=== PATIENT | male | born 1990 | race Caucasian/White ===

== ENCOUNTER 2024-07-09 00:57 | Emergency (ER) | payer OTHER, SELFPAY ==
--- NOTE | 2024-07-09 01:06 | ED_ITS ---
HPI - General Adult General Chief complaint: Animal Bite Stated complaint: Cat bite R index finger Time Seen by Provider: 07/09/24 01:01 History of Present Illness HPI narrative: Pt states he was getting ready for bed, had right index finger covered with a bandaid from a previous injury and his cat bit his right index finger. Puncture through top of nail bed. Pt. states his cat is an indoor only cat. States his finger is throbbing, pain 5/10 34-year-old man presenting to the emergency department with concern of cat bite sustained to his right index finger tonight. Had had a prior cut on this finger and had a Band-Aid on. CT was nibbling on his fingers they were getting ready for bed. Apparently then he felt a crunch as her molar went through his nail. He then noted blood their confirming his concerns. Understanding that cat bites tend to get infected Keyshawn presented to the emergency department for further evaluation and antibiotic. Does note that is due for a tetanus update. Throbbing pain but admittedly this is intermittent. Related Data Previous Rx's ?Medication ?Instructions ?Recorded amoxicillin 875 mg-potassium 1 tab PO BID 7 days #14 tabs 07/09/24 clavulanate 125 mg tablet Allergies Allergy/AdvReac Type Severity Reaction Status Date / Time No Known Drug Allergies Allergy Verified 07/09/24 01:11 Review of Systems Status of ROS: Reports: 6 or more systems reviewed and unremarkable except as noted in History and below [facility] Social History Smoking Status: Never smoker Do you use any of these nicotine containing products: Vaping Products Second hand tobacco smoke exposure: No How often do you have a drink containing alcohol: monthly or less How many standard drinks containing alcohol do you have on a typical day: 1 or 2 How often do you have six or more drinks on one occasion: Never AUDIT-C Alcohol total score: 1 Non-prescribed substance use: denies use service: No Exam Narrative: Exam Narrative: Pleasant. NAD. Breathing easily. Moving all extremities without difficulty. Skin is warm and dry. Various scrapes consistent with cat claws perhaps. Right index finger in question does show a mm size puncture wound midline a nail proximal aspect. Small spot of blood there. Linear healing scrape/scratch on the radial side of the distal phalanx. No inflammatory changes in the area. Const: Vital Signs, click to edit/add: Vital Signs - 24 hr 07/09/24 01:08 Temperature 98.2 F Pulse Rate [Pulse Oximeter] 89 Respiratory Rate 18 Blood Pressure [Le ft Upper Arm] 131/88 Pulse Oximetry 97 Oxygen Delivery Me thod Room Air Documenting provider has reviewed patient's vital signs: yes Course Vital Signs Vital signs: Initial Vital Signs Temperature 98.2 F 07/09/24 01:08 Temperature Source Temporal Artery Scan 07/09/24 01:08 Pulse Rate 89 07/09/24 01:08 Pulse Rhythm Regular 07/09/24 01:08 Respiratory Rate 18 07/09/24 01:08 Blood Pressure 131/88 07/09/24 01:08 Blood Pressure Mean 102 07/09/24 01:08 Blood Pressure Position Sitting 07/09/24 01:08 Pulse Oximetry 97 07/09/24 01:08 Oxygen Delivery Method Room Air 07/09/24 01:08 Vital Signs Temperature 98.2 F 07/09/24 01:08 Pulse Rate 89 07/09/24 01:08 Respiratory Rate 18 07/09/24 01:08 Blood Pressure 131/88 07/09/24 01:08 Pulse Oximetry 97 07/09/24 01:08 Oxygen Delivery Method Room Air 07/09/24 01:08 Temperature 98.2 F 07/09/24 01:08 Pulse Rate 89 07/09/24 01:08 Respiratory Rate 18 07/09/24 01:08 Blood Pressure 131/88 07/09/24 01:08 Pulse Oximetry 97 07/09/24 01:08 Oxygen Delivery Method Room Air 07/09/24 01:08 Medications Administered Medications: Discontinued Medications Generic Name Dose Route Start Last Admin Trade Name Freq PRN Reason Stop Dose Admin Diphtheria/Tetanus/Acell Pertussis 0.5 ml 07/09/24 01:28 07/09/24 01:54 Tetanus/Diphth/Pertussis 0.5 Ml Syringe IM 07/09/24 01:29 0.5 ml .ONCE ONE Administration Ibuprofen 600 mg 07/09/24 01:24 07/09/24 01:55 Ibuprofen 200 Mg Tablet PO 07/09/24 01:25 600 mg ONCE ONE Administration Medical Decision Making MDM Narrative Medical decision making narrative: Place to soak in antibacterial solution. Did give some ibuprofen. I did discuss a digital block with initially described pain but he would prefer not to do that. Updating tetanus with Adacel. Would monitor closely for infection. Quite clean this wound otherwise but does not appear to be close to tendon or joint. Did prescribe Augmentin. He did not feel he needed it tonight. Sent to pharmacy. Think it would be okay to monitor this finger closely verses initiate antibiotic is prophylaxis. See patient discharge plan for further discussion Discharge Plan Discharge Clinical Impression: Cat bite of index finger Patient Disposition: Home, Self-Care Condition: Stable Instructions: Animal Bite (ED) Additional Instructions: Ibuprofen, acetaminophen, elevation for comfort. Watch for spreading redness after 2 days or redness extending beyond the 1st knuckle as indication to initiate antibiotics. Cover with antibiotic ointment and Band-Aid over the next 5 days Would soak in warm soapy or Epsom salt water a couple of times daily over the next 2-3 days. Activity Level: No Restrictions Discharge Diet: Regular Prescriptions: New amoxicillin-pot clavulanate 875-125 mg tablet 1 tab PO BID 7 Days Qty: 14 0RF Follow Up/Referrals: Provider,Not a Local [Primary Care Provider] - Stand Alone Forms: [facility] Info Instructions
[2024-07-09 01:08] VITALS: BP 131/88; PULSE 89; RESP 18; TEMP 36.8; O2SAT 97; BMI 34.0
--- OUTSIDE RECORDS SUMMARY | 2024-07-09 01:30 | XMS_ITS | Clinical Summary ---
[facility] Organization [facility] Address [address] [address] Care Team Providers Care Terminologist Name Role Phone Watson Mo PA-C Primary Care Provider [phone] Source Comments You are receiving this document as you are listed as the primary care provider,follow-up provider, or the patient has been referred to you for consultation.This is in compliance with the Medicare andMedicaid EHR Incentive Program,which states Providers who transition their patient to another setting of careor provider of care or refers their patient to another provider of care shouldprovide summary care record for each transition of care or referral. [facility] Allergies No known active allergies Medications Medication Sig Dispensed Refills Start Date End Date Status ALBUterol sulfate HFA 108 (90 Base) MCG/ACT inhaler Inhale 1-2 Puffs every 4 hours as needed for Wheezing. 1 Each 03/10/2023 06/26/2024 Discontinued Active Problems Problem Noted Date Diagnosed Date Lesion of ulnar nerve, right upper limb Encounters Date Type Department Care Team Description 06/26/2024 3:40 PM CDT Lab Visit [facility] [address] [place] [phone] Routine screening for STI (sexually transmitted infection) 06/26/2024 3:30 PM CDT Office Visit [facility] [address] [place] [address] [phone] Watson Mo PA-C Annual physical exam (Primary Dx); Screening for diabetes mellitus; Screening for hyperlipidemia; Routine screening for STI (sexually transmitted infection) from Last 3 Months Immunizations Name Administration Dates Next Due MMR 06/01/1998 TB Skin Test (PPD) 02/27/2019 Td 11/25/2002 Family History Medical History Relation Name Comments Heart Disease Maternal Grandfather Dmitry Histor y of heart disease on mothers side Relation Name Status Comments Maternal Grandfather Dmitry Social History Tobacco Use Types Packs/Day Years Used Date Smoking Tobacco: Former Cigarettes 1 10 Q uit: 06/06/2021 Tobacco Cessation:Counseling Given: Not Answered Alcohol Use Standard Drinks/Week Comments Not Currently 0 (1 standard drink = 0.6 oz pure alcohol) Extremely infrequent use, maybe once or twice a year at most PHQ-2 Answer Date Recorded PHQ-2 Score 0 06/26/2024 Hunger Vital Sign Answer Date Recorded Within the past 12 months, y ou worried that your food would run out before you got the money to buy more. Never true 06/26/20 24 Within the past 12 months, t he food you bought just didn't last and you didn't have money to get more. Never true 06/26/2024 PRAPARE - Transportation Answer Date Re corded In the past 12 months, has l ack of transportation kept you from medical appointments or from getting medications? No 06/07 In the past 12 months, has l ack of transportation kept you from meetings, work, or from getting things needed for daily living? No 06/26/2024 Housing Stability Vital Sign Answer Abisai e Recorded In the last 12 months, was t here a time when you were not able to pay the mortgage or rent on time? No 06/26/2024 In the past 12 months, how m any times have you moved where you were living? 0 06/26/2024 At any time in the past 12 m [facility], were you homeless or living in a halfway (including now)? No 06/26/2024 Sex and Gender Information Value Date Recorded Sex Assigned at Not on file Gender Identity Not on file Sexual Orientation Not on file Last Filed Vital Signs Vital Sign Reading Time Taken Comments Blood Pressure 121/81 06/26/2024 3:07 PM CDT Pulse 68 06/26/2024 3:07 PM CDT Temperature 37.1 ??C (98.8 ??F) 03/10/2023 8:06 AM CD T Respiratory Rate 18 03/10/2023 8:06 AM CDT Oxygen Saturation 98% 03/10/2023 8:06 AM CDT Inhaled Oxygen Concentration - - Weight 105.7 kg (233 lb) 06/26/2024 3:07 PM CDT Height 175.3 cm (5' 9) 06/26/2024 3:07 PM CDT Body Mass Index 34.41 06/26/2024 3:07 PM CDT Plan of Treatment Health Maintenance Due Date Last Done Comments MTM Covered 1991 DTaP/Tdap/Td (2 - Tdap) 11/26/2002 11/25/2002 HepB (1) 2010 COVID-19 Vaccine (3 - 2022-2 4 season) 2023 09/23/2021, 01/25/2021 Influenza (#1) 2024 Adult Preventive Visit 06/26/2026 06/26/2024 Zoster/Shingles (1 of 2) 2041 HIV Screening (Preventive Services) Completed 06/26/2024 Hep C Screening (Preventive Services) Completed 06/26/2024 HPV Vaccine Aged Out No longer eligi ble based on patient's age to complete this topic HepA Aged Out No longer eligi ble based on patient's age to complete this topic Hib Aged Out No longer eligi ble based on patient's age to complete this topic IPV (Polio) Aged Out No longer eligi ble based on patient's age to complete this topic MCV4 Aged Out No longer eligi ble based on patient's age to complete this topic Pneumococcal Aged Out No longer eligi ble based on patient's age to complete this topic Procedures Procedure Name Priority Date/Time Associated Diagnosis Comments SYPHILIS PANEL (WITH REFLEX) Routine 06/26/2024 3:45 PM CDT Routine screening for STI (sexually transmitted infection) CHLAMYDIA & GC, URINE (14 YEARS AND OLDER) Routine 06/26/2024 3:45 PM CDT Routine screening for STI (sexually transmitted infection) HEPATITIS C ANTIBODY, WITH REFLEX Routine 06/26/2024 3:45 PM CDT Routine screening for STI (sexually transmitted infection) HIV 1/2 AG/AB 4TH GEN Routine 06/26/2024 3:45 PM CDT Routine screening for STI (sexually transmitted infection) SYPHILIS PANEL (WITH REFLEX) Routine 06/26/2024 3:45 PM CDT Routine screening for STI (sexually transmitted infection) from Last 3 Months Results * Syphilis Panel, with Reflex (06/26/2024 3:45 PM CDT) Treponema Screen Interpretation Non Reactive Non Reactive 06/26/2024 8:16 PM CDT [facility] Syphilis Panel Comment Negative - No serological evidence of syphilis. 06/26/2024 8:16 PM CDT [facility] Blood Venipuncture / Unknown 06/26/2024 3:45 PM CDT 06/26/2024 3:45 PM CDT Watson Mo PA-C LAB_1 Performing Organization Address City/[facility]/ZIP Co de Phone Number [facility] [address] [place] [address] * HIV 1/2 Ag/Ab 4th Generation (06/26/2024 3:45 PM CDT) Pathologist [facility] HIV 1/2 Antigen/Antib karime (4th generation) Negative (Non Reactive) Negative (Non Reactive) 06/26/2024 8:16 PM CDT [facility] Comment:HIV-1 p24 Antigen an d HIV-1/HIV-2 Antibody not detected Blood Venipuncture / Unknown 06/26/2024 3:45 PM CDT 06/26/2024 3:45 PM CDT Watson Mo PA-C LAB_1 [facility] [address] [place] [address] * Chlamydia & GC, Urine (14 Years and Older) (06/26/2024 3:45 PM CDT) Pathologist [facility] Chlamydia Trachomatis STD Not Detected Not Detected 06/27/2024 12:25 PM CDT [facility] N. gonorrhoeae STD Not Detected Not Detected 06/27/2024 12:25 PM CDT [facility] Urine STD Non-blood Collection / Unknown 06/26/2024 3:45 PM CDT 06/26/2024 3:50 PM CDT Narrative [facility] - 06/27/2024 12:25 PM CDT Test performed by [employer] Mediated Amplification (TMA). Watson Mo PA-C LAB_1 [facility] [address] [address] * Hepatitis C Antibody, with Reflex (06/26/2024 3:45 PM CDT) Hepatitis C Antibody Negative (Non Reactive) Negative (Non Reactive) 06/26/2024 8:16 PM CDT [facility] Comment:Antibodies to HCV no t detected. Does not exclude the possiblity of exposure to HCV. Blood Venipuncture / Unknown 06/26/2024 3:45 PM CDT 06/26/2024 3:45 PM CDT Watson Mo PA-C LAB_1 Performing Organization Address City/[facility]/ZIP Co de Phone Number [facility] [address] [place] [address], [facility] from Last 3 Months Care Teams Terminologist Relationship Specialty Start Date End Date Watson Mo PA-C [address] [place] [address] [place] [address] PCP - General Physician [employer] 06/26/24
--- OUTSIDE RECORDS SUMMARY | 2024-07-09 01:30 | XMS_ITS | Encounter Summary ---
Author Organization [facility] Address [address] [place] [address] Care Team Providers Care Cylinder Worker Name Role Phone Watson Mo PA-C Primary Care Provider [phone] Reason for Visit * Reason Comments Annual Exam Encounter Details Date Type Department Care Team (Late st Contact Info) Description 06/26/2024 3:30 PM CDT Office Visit [facility] [address] [facility] [place] [phone] Watson Mo PA-C [address] [facility] [place] [facility] [place] [id number] Annual physical exam (Primary Dx); Screening for diabetes mellitus; Screening for hyperlipidemia; Routine screening for STI (sexually transmitted infection) Social History Tobacco Use Types Packs/Day Years [...] any time in the past [address] [facility], were you homeless or living in a intermediate (including now)? No 06/26/2024 Sex and Gender Information Value Date Recorded Sex Assigned at Not on file Gender Identity Not on file Sexual Orientation Not on file documented as of this encounter Last Filed Vital Signs Vital Sign Reading Time Taken Comments Blood Pressure 121/81 06/26/2024 3:07 PM CDT Pulse 68 06/26/2024 3:07 PM CDT Temperature - - Respiratory Rate - - Oxygen Saturation - - Inhaled Oxygen Concentration - - Weight 105.7 kg (233 lb) 06/26/2024 3:07 PM CDT Height 175.3 cm (5' 9) 06/26/2024 3:07 PM CDT Body Mass Index 34.41 06/26/2024 3:07 PM CDT documented in this encounter Progress Notes * Watson Mo PA-C - 06/26/2024 3:30 PM CDT Images from the original note were not included. Male Preventive Health Visit SUBJECTIVE Identifying data: Keyshawn Mckeon is a 33 y.o. male Date of Visit: 06/26/2024 SUBJECTIVE: This 33 y.o. male presents for a routine preventive physical exam. He has a past medical history ofacid reflux. He primarily manages this with dietary and lifestyle modifications. Will occasionally use Tums and Prilosec. No other reported chronic medical conditions. He is currently applying for the [facility] Law enforcement program. Requires to have a physical and paperwork completed. He also would like to have STI panel done as he has not had 1 for several years. No concerns or symptoms reported. There is no problem list on file for this patient. Past Medical History: Diagnosis Date Gastroesophageal reflux disease Likely diet related- only happens after certain food/drinks but not frequently. Past Surgical History: Procedure Laterality Date WISDOM TEETH EXTRACTION Bilateral Family History Problem Relation Name Age of [place] Heart Disease Maternal Grandfather Andres History of heart disease on mothers side Social History Socioeconomic History Marital status: Single Spouse name: Not on file Number of children: Not on file Years of education: Not on file Highest education level: Not on file Occupational History Not on file Tobacco Use Smoking status: Former Current packs/day: 0.00 Average packs/day: 1 pack/day for 10.0 years (10.0 ttl pk-yrs) Types: Cigarettes Quit date: 06/06/2021 Years since quittin.0 Smokeless tobacco: Not on file Vaping Use Vaping status: Every Day Substance and Sexual Activity Alcohol use: Not Currently Comment: Extremely infrequent use, maybe once or twice a year at most Drug use: Never Sexual activity: Yes Partners: Female control/protection: None Other Topics Concern Bike Helmet Not Asked City Water Not Asked Exercise Not Asked Guns in home Not Asked Seat Belt Not Asked Special Diet Not Asked Weight Concern Not Asked Social History Narrative Not on file Social Determinants of Health Financial Resource Strain: Not on file Food Insecurity: No Food Insecurity (06/26/2024) Hunger Vital Sign Worried About Running Out of Food in the Last Year: Never true Ran Out of Food in the Last Year: Never true Transportation Needs: No Transportation Needs (06/26/2024) PRAPARE - Transportation Lack of Transportation (Medical): No Lack of Transportation (Non-Medical): No Physical Activity: Not on file Stress: Not on file Social Connections: Not on file Intimate Partner Violence: Not on file Housing Stability: Low Risk (06/26/2024) Housing Stability Vital Sign Unable to Pay for Housing in the Last Year: No Number of Times Moved in the Last Year: 0 Homeless in the Last Year: No Current Outpatient Medications Medication Sig Dispense Refill ALBUterol sulfate HFA 108 (90 Base) MCG/ACT inhaler Inhale 1-2 Puffs every 4 hours as needed for Wheezing. 1 Each 0 No current facility-administered medications for this visit. No Known Allergies Health Maintenance Immunization History Administered Date(s) Administered MMR 06/01/1998 TB Skin Test (PPD) 02/27/2019 Td 11/25/2002 Preventive Health Assessment Present exercise habits: Active Mood: No concerns Sleep: No concerns Immunizations: Up to date. Will check to ensure when his last tetanus booster was. Colonoscopy: Due at 46 Review of Systems: Review of Systems completed and is negative except as stated above in HPI PHQ9: No data to display Index Date: No date on file. OBJECTIVE: Filed Vitals: 06/26/24 1507 BP: 121/81 Pulse: 68 Weight: 233 lb (105.7 kg) Height: 5' 9 (1.753 m) Estimated body mass index is 34.41 kg/m?? as calculated from the following: Height as of this encounter: 5' 9 (1.753 m). Weight as of this encounter: 233 lb (105.7 kg). General Appearance: Alert, cooperative, no acute distress Head: Normocephalic, no obvious abnormality Eyes: PERRL, EOMI, conjunctiva and corneas clear without injection Ears: TM pearly hays bilaterally without erythema or fluid. Normal auditory canals bilaterally Nose: Nares symmetrical, septum midline, mucosa pink. Throat: oropharynx non-erythematous; lips, tongue, and mucosa are moist and pink. Neck: No cervical adenopathy; thyroid: no enlargement, symmetric,no tenderness/mass/nodules Lungs: Clear to auscultation bilaterally, respirations unlabored Heart: regular rate & rhythm, no murmurs Abdomen: Soft, non-tender, non-distended, bowel sounds active, no masses or organomegaly Skin/Hair/Nails: Skin warm, dry, and intact, no rashes or lesions seen. Neurologic: Alert and oriented x3, no gross cranial nerve deficits, normal strength and tone, gait steady Psychiatric: Alert & oriented with normal affect and insight. ASSESSMENT / PLAN: 1. Annual physical exam 2. Screening for diabetes mellitus - Glucose; Future 3. Screening for hyperlipidemia - Lipid Panel and Direct LDL(If Needed); Future 4. Routine screening for STI (sexually transmitted infection) - HIV 1/2 Ag/Ab 4th Generation; Future - Hepatitis C Antibody, with Reflex; Future - Chlamydia & GC, Urine (14 Years and Older); Future - Syphilis Panel, with Reflex; Future Normal exam today. He will return to have fasting labs drawn, I will contact him regarding these results. STI panel ordered. Blood pressure within normal limits. He believes that he had a tetanus booster while in the , he will ensure that this is completed. Physical paperwork completed today. He has no other concerns or questions. He will follow up in one year for his preventative visit. Watson Mo PA-C documented in this encounter Plan of Treatment Scheduled Orders Name Type Priority Associated Diagnoses Orde r Schedule Glucose Lab Routine Screening for diabetes mellitus Expected: 06/26/2024, Expires: 12/27/2024 Lipid Panel and Direct LDL(If Needed) Lab Routine Screening for hyperlipidemia Expected: 06/26/2024, Expires: 12/27/2024 documented as of this encounter Results * Chlamydia & GC, Urine (14 Years and Older) (06/26/2024 3:45 PM CDT) Pathologist [facility] Chlamydia Trachomatis STD Not Detected Not Detected 06/27/2024 12:25 PM CDT [facility] N. gonorrhoeae STD Not Detected Not Detected 06/27/2024 12:25 PM CDT [facility] Urine STD Non-blood Collection / Unknown 06/26/2024 3:45 PM CDT 06/26/2024 3:50 PM CDT Narrative [facility] - 06/27/2024 12:25 PM CDT Test performed by [employer] Professional Mediated Amplification (TMA). Watson Mo PA-C LAB_1 [facility] [address] * Hepatitis C Antibody, with Reflex (06/26/2024 3:45 PM CDT) Pathologist [facility] Hepatitis C Antibody Negative (Non Reactive) Negative (Non Reactive) 06/26/2024 8:16 PM CDT [facility] Comment:Antibodies to HCV no t detected. Does not exclude the possiblity of exposure to HCV. Blood Venipuncture / Unknown 06/26/2024 3:45 PM CDT 06/26/2024 3:45 PM CDT Watson Mo PA-C LAB_1 Performing Organization Address City/[facility]/ZIP Co de Phone Number [facility] [address] * HIV 1/2 Ag/Ab 4th Generation (06/26/2024 3:45 PM CDT) HIV 1/2 Antigen/Antib karime (4th generation) Negative (Non Reactive) Negative (Non Reactive) 06/26/2024 8:16 PM CDT [facility] Comment:HIV-1 p24 Antigen an d HIV-1/HIV-2 Antibody not detected Blood Venipuncture / Unknown 06/26/2024 3:45 PM CDT 06/26/2024 3:45 PM CDT Watson Mo PA-C LAB_1 Performing Organization Address [facility] Co de Phone Number [facility] [address] documented in this encounter Visit Diagnoses Diagnosis Annual physical exam- Primary Routine general medical examination at a health care facility Screening for diabetes mellitus Screening for hyperlipidemia Screening for lipoid disorders Routine screening for STI (sexually transmitted infection) Screening examination for venereal disease documented in this encounter Care Teams Cylinder Worker Relationship Specialty Start Date End Date Watson Mo PA-C [address] [place] [address] PCP - General Physician Business Support Manager 06/26/24 documented as of this encounter
--- OUTSIDE RECORDS SUMMARY | 2024-07-09 01:30 | XMS_ITS | Encounter Summary ---
Author Organization [facility] Address [address] [place] [address] Care Team Providers Care Budget Counselor Name Role Phone Watson Mo PA-C Primary Care Provider + [phone] Encounter Details Date Type Department Care Team (Late st Contact Info) Description 06/26/2024 3:40 PM CDT Lab Visit [facility] [address] [place] [address] Routine screening for STI (sexually transmitted infection) Social History Tobacco Use Types Packs/Day Years Used Date Smoking Tobacco: Former Cigarettes 1 10 Q uit: 06/06/2021 Alcohol Use Standard Drinks/Week Comments Not Currently [...] any time in the past 12 m [facility], were you homeless or living in a care home (including now)? No 06/26/2024 Sex and Gender Information Value Date Recorded Sex Assigned at Not on file Gender Identity Not on file Sexual Orientation Not on file documented as of this encounter Plan of Treatment Not on file documented as of this encounter Procedures Procedure Name Priority Date/Time Associated Diagnosis [...] Routine screening for STI (sexually transmitted infection) documented in this encounter Results * Syphilis Panel, with Reflex (06/26/2024 3:45 PM CDT) Treponema Screen Interpretation Non Reactive Non Reactive 06/26/2024 8:16 PM CDT [facility] Syphilis Panel Comment Negative - No serological evidence of syphilis. 06/26/2024 8:16 PM CDT [facility] Blood Venipuncture / Unknown 06/26/2024 3:45 PM CDT 06/26/2024 3:45 PM CDT Watson Mo PA-C LAB_1 [facility] [address] * Chlamydia & GC, Urine (14 Years and Older) (06/26/2024 3:45 PM CDT) Pathologist [facility] Chlamydia Trachomatis STD Not Detected Not Detected 06/27/2024 12:25 PM CDT [facility] N. gonorrhoeae STD Not Detected Not Detected 06/27/2024 12:25 PM CDT [facility] Urine STD Non-blood Collection / Unknown 06/26/2024 3:45 PM CDT 06/26/2024 3:50 PM CDT Narrative [facility] - 06/27/2024 12:25 PM CDT Test performed by Motor Vehicle Inspector Mediated Amplification (TMA). Watson Mo PA-C LAB_1 Performing Organization Address [facility] Co de Phone Number [facility] [address] * Hepatitis C Antibody, with Reflex (06/26/2024 3:45 PM CDT) Pathologist [facility] Hepatitis C Antibody Negative (Non Reactive) Negative (Non Reactive) 06/26/2024 8:16 PM CDT [facility] Comment:Antibodies to HCV no t detected. Does not exclude the possiblity of exposure to HCV. Blood Venipuncture / Unknown 06/26/2024 3:45 PM CDT 06/26/2024 3:45 PM CDT Watson Mo PA-C LAB_1 Performing Organization Address City/[facility]/ZIP Co de Phone Number [facility] [address] * HIV 1/2 Ag/Ab 4th Generation (06/26/2024 3:45 PM CDT) Pathologist [facility] HIV 1/2 Antigen/Antib karime (4th generation) Negative (Non Reactive) Negative (Non Reactive) 06/26/2024 8:16 PM CDT [facility] Comment:HIV-1 p24 Antigen an d HIV-1/HIV-2 Antibody not detected Blood Venipuncture / Unknown 06/26/2024 3:45 PM CDT 06/26/2024 3:45 PM CDT Watson Mo PA-C LAB_1 [facility] [address] [place] [address], [facility] documented in this encounter Visit Diagnoses Diagnosis Routine screening for STI (sexually transmitted infection) Screening examination for venereal disease documented in this encounter Care Teams Budget Counselor Relationship Specialty Start Date End Date Watson Mo PA-C [address] [place] [address] [place] [address] PCP - General Physician Parts Professional 06/26/24 documented as of this encounter
--- OUTSIDE RECORDS SUMMARY | 2024-07-09 01:30 | XMS_ITS | Clinical Summary ---
Author Organization [facility] Address [place], [place] [address] Care Team Providers Care Python Developer Name Role Phone Pcp, No Primary Care Provider Unavailabl e Allergies No known active allergies Social History Tobacco Use Types Packs/Day Years Used Date Smoking Tobacco: Never Assessed Sex and Gender Information Value Date Recorded Sex Assigned at Not on file Gender Identity Not on file Sexual Orientation Not on file Last Filed Vital Signs Vital Sign Reading Time Taken Comments Blood Pressure 133/74 08/01/2023 8:08 AM CDT Pulse 82 08/01/2023 8:08 AM CDT Temperature 37.1 ??C (98.7 ??F) 08/01/2023 8:08 AM CD T Respiratory Rate 16 08/01/2023 8:08 AM CDT Oxygen Saturation 96% 08/01/2023 8:08 AM CDT Inhaled Oxygen Concentration - - Weight 104.8 kg (231 lb) 08/01/2023 8:08 AM CDT Height - - Body Mass Index - - Plan of Treatment Not on file Care Teams Python Developer Relationship Specialty Start Date End Date Pcp, No . PCP - General 03/31/17
[2024-07-09] MEDS: TETANUS/DIPHTH/PERTUSSIS 0.5 ML SYRINGE IM (01:54)
[2024-07-09] MEDS: IBUPROFEN 200 MG TABLET 600 MG PO (01:55)
== END 2024-07-09 01:55 | disposition home or self-care (01) ==
PROVIDERS: Emergency Provider Family Medicine
DX: S61.250A Open bite of right index finger without damage to nail, initial encounter (principal); W55.01XA Bitten by cat, initial encounter; Z23 Encounter for immunization
CPT/HCPCS: 90471; 90715; 99283; 99284; A9270

== ENCOUNTER 2025-03-10 02:26 | Emergency (ER) | payer OTHER, SELFPAY ==
--- OUTSIDE RECORDS SUMMARY | 2025-03-10 02:28 | XMS_ITS | Clinical Summary ---
Author Organization [facility] Address [address] [place] [address] Care Team Providers Care Body Presser Name Role Phone Pcp, No Primary Care Provider Unavailabl e Allergies No known active allergies Social History Tobacco Use Types Packs/Day Years Used Date Smoking Tobacco: Never Assessed Sex and Gender Information Value Date Recorded Sex Assigned at Not on file Legal Sex Male 11:00 AM CDT Gender Identity Not on file Sexual Orientation Not on file Last Filed Vital Signs Vital Sign Reading Time Taken Comments Blood Pressure 133/74 08/01/2023 8:08 AM CDT Pulse 82 08/01/2023 8:08 AM CDT Temperature 37.1 C (98.7 F) 08/01/2023 8:08 AM CDT Respiratory Rate 16 08/01/2023 8:08 AM CDT Oxygen Saturation 96% 08/01/2023 8:08 AM CDT Inhaled Oxygen Concentration - - Weight 104.8 kg (231 lb) 08/01/2023 8:08 AM CDT Height - - Body Mass Index - - Plan of Treatment Not on [place] [id number] [place] [id number] [phone] (Work) [address] [place] [address] Care Teams Body Presser Relationship Specialty Start Date End Date Pcp, No . PCP - General 03/31/17
--- OUTSIDE RECORDS SUMMARY | 2025-03-10 02:29 | XMS_ITS | Clinical Summary ---
Author Organization [facility] Address [address] [place] [address] Care Team Providers Care Low Raw Sugar Cutter Name Role Phone Watson Mo PA-C Primary Care Provider + [phone] Source Comments You are receiving this document as you are listed as the primary care provider,follow-up provider, or the patient has been referred to you for consultation.This is in compliance with the Medicare and[facility] Foundation[facility] EHR Incentive Program,which states Providers who transition their patient to another setting of careor provider of care or refers their patient to another provider of care shouldprovide summary care record for each transition of care or referral. [facility] Allergies No known active allergies Medications No known medications Active Problems Problem Noted Date Diagnosed Date Lesion of ulnar nerve, right upper limb Immunizations Immunization Administration Dates Next Due MMR 06/01/1998 TB Skin Test (PPD) 02/27/2019 Td 11/25/2002 Family History Medical History Relation Name Comments Heart Disease Maternal Grandfather Andres Histor y of heart disease on mothers side Relation Name Status Comments Maternal Grandfather Andres Social History Tobacco Use Types Packs/Day Years [...] any time in the past 12 m [facility], were you homeless or living in a intermediate (including now)? No 06/26/2024 Sex and Gender Information Value Date Recorded Sex Assigned at Not on file Legal Sex Male 4:50 AM CDT Gender Identity Not on file Sexual Orientation Not on file Last Filed Vital Signs Vital Sign Reading Time Taken Comments Blood Pressure 121/81 06/26/2024 3:07 PM CDT Pulse 68 06/26/2024 3:07 PM CDT Temperature 37.1 C (98.8 F) 03/10/2023 8:06 AM CDT Respiratory Rate 18 03/10/2023 8:06 AM CDT Oxygen Saturation 98% 03/10/2023 8:06 AM CDT Inhaled Oxygen Concentration - - Weight 105.7 kg (233 lb) 06/26/2024 3:07 PM CDT Height 175.3 cm (5' 9) 06/26/2024 3:07 PM CDT Body Mass Index 34.41 06/26/2024 3:07 PM CDT Plan of Treatment Health Maintenance Due Date Last Done Comments HepB Vaccine (1) 2010 COVID-19 Vaccine ( - 2023-2 5 season) 2024 09/23/2021, 01/25/2021 Influenza Vaccine (Season Ended) 2025 Adult Preventive Visit 06/26/2026 06/26/2024 DTaP/Tdap/Td Vaccine (3 - Tdap) 07/09/2034 07/09/2024, 11/25/2002 Zoster/Shingles Vaccine (1 o f 2) 2041 HIV Screening (Preventive Services) Completed 06/26/2024 Hep C Screening (Preventive Services) Completed 06/26/2024 HPV Vaccine Aged Out No longer eligi ble based on patient's age to complete this topic HepA Vaccine Aged Out No longer eligi ble based on patient's age to complete this topic Hib Vaccine Aged Out No longer eligi ble based on patient's age to complete this topic IPV (Polio) Vaccine Aged Out No longe r eligible based on patient's age to complete this topic MCV4 Vaccine Aged Out No longer eligi ble based on patient's age to complete this topic Meningococcal B Vaccine Aged Out No l onger eligible based on patient's age to complete this topic Pneumococcal Vaccine Aged Out No long er eligible based on patient's age to complete this topic Procedures Procedure Name Priority Date/Time Associated Diagnosis Comments HIV 1/2 AG/AB 4TH GEN Routine 06/26/2024 3:45 PM CDT Routine screening for STI (sexually transmitted infection) HEPATITIS C ANTIBODY, WITH REFLEX Routine 06/26/2024 3:45 PM CDT Routine screening for STI (sexually transmitted infection) from Last 3 Months or Most Recently Relevant to Health Maintenance Results * HIV 1/2 Ag/Ab 4th Generation (06/26/2024 3:45 PM CDT) HIV 1/2 Antigen/Antib karime (4th generation) Negative (Non Reactive) Negative (Non Reactive) 06/26/2024 8:16 PM CDT [facility] Comment:HIV-1 p24 Antigen an d HIV-1/HIV-2 Antibody not detected Blood Venipuncture / Unknown 06/26/2024 3:45 PM CDT 06/26/2024 3:45 PM CDT us Watson Mo PA-C LAB_1 Final Result [facility] [address] * Hepatitis C Antibody, with Reflex (06/26/2024 3:45 PM CDT) Hepatitis C Antibody Negative (Non Reactive) Negative (Non Reactive) 06/26/2024 8:16 PM CDT [facility] Comment:Antibodies to HCV no t detected. Does not exclude the possiblity of exposure to HCV. Blood Venipuncture / Unknown 06/26/2024 3:45 PM CDT 06/26/2024 3:45 PM CDT us Watson Mo PA-C LAB_1 Final Result [facility] [address] [place] [address], [facility] from Last 3 Months or Most Recently Relevant to Health Maintenance Insurance SELF INSURED SELF INSURED Care Teams Low Raw Sugar Cutter Relationship Specialty Start Date End Date Watson Mo PA-C [address] [place] [address] PCP - General Physician Auto Camp Attendant 06/26/24
--- OUTSIDE RECORDS SUMMARY | 2025-03-10 02:29 | XMS_ITS | Clinical Summary ---
Author Organization [facility] Address [address] [place] [address] Care Team Providers Care Wild Life Photographer Name Role Phone Elsewhere, Pcp Primary Care Provider Unavailabl e Source Comments Patient records contain information from all sites at [facility]. For routine questions regarding patient records, call [phone] during business hours, M-F 8:00 AM - 5:00 PM Central Time. Record requests for emergency care only can be directed to [phone] at any time.[facility] Allergies No known active allergies Medications acetaminophen (TYLENOL) 500 mg tablet Take 1,000 mg by mouth every 6 (six) hours as needed for pain. Active Active Problems Problem Noted Date Diagnosed Date Obstructive Sleep Apnea Adult 01/26/2025 Lesion Nerve Ulnar Right 01/26/2025 Insomnia 01/26/2025 Gastroesophageal Reflux Disease 01/26/2025 Encounters Date Type Department Care Team Description 01/26/2025 10:10 AM CDT - 01/26/2025 11:36 AM CDT Emergency [facility] [address] [place] [address] Daysi Linder APRN, C.N.P., M.S.N. Infection Upper Respiratory (Primary Dx); Pharyngitis Acute Discharge Disposition: Home or Self Care from Last 3 Months Social History Tobacco Use Types Packs/Day Years Used Date Smoking Tobacco: Never Passive Smoke Exposure: Never Tobacco Cessation:Counseling Given: Not Answered Comments:Currently vapes 01/2025 Alcohol Use Standard Drinks/Week Comments Not Currently 0 (1 standard drink = 0.6 oz pur e alcohol) Dental Answer Date Recorded Dental: Regular Dentist Unknown 07/30/20 Sex and Gender Information Value Date Recorded Sex Assigned at Not on file Legal Sex Male 1:22 AM ETHOLOGIST Gender Identity Not on file Sexual Orientation Not on file Last Filed Vital Signs Vital Sign Reading Time Taken Comments Blood Pressure 139/82 01/26/2025 10:17 AM CDT Pulse 83 01/26/2025 10:17 AM CDT Temperature 36.6 C (97.9 F) 01/26/2025 10:17 AM CDT Respiratory Rate 18 01/26/2025 10:17 AM CDT Oxygen Saturation 97% 01/26/2025 10:17 AM CDT Inhaled Oxygen Concentration - - Weight 103 kg (226 lb) 01/26/2025 10:19 AM CDT Height 179.8 cm (5' 10.8) 07/30/2022 11:47 AM C DT Body Mass Index 31.7 07/30/2022 11:47 AM CDT Plan of Treatment Health Maintenance Due Date Last Done Comments HIV Screening 1991 Hepatitis C Screening 1991 Tobacco Cessation counseling 1991 Hepatitis B Vaccines (1 of 3 - 19+ 3-dose series) 2010 COVID-19 Vaccine (2023- season) 2024 10/07/2021, 02/25/2021, 01/28/2021, Additional history exists Influenza Vaccine (#1) 2024 , 10/02/2020, 10/01/2019, Additional history exists Depression Screening (Annual PHQ-2) 11/06/2024 DTaP,Tdap,and Td Vaccines (3 - Td or Tdap) 12/07/2026 12/07/2016, 01/22/2016 HPV Vaccines Aged Out No longer eligi ble based on patient's age to complete this topic IPV Vaccines Aged Out No longer eligi ble based on patient's age to complete this topic Pneumococcal vaccine (0-49 years) Aged Out No longer eligible based on patient's age to complete this topic Procedures Procedure Name Priority Date/Time Associated Diagnosis Comments GROUP A STREP PCR, THROAT STAT 01/26/2025 11:07 AM CDT Pharyngitis Acute from Last 3 Months Results * Group A Streptococcus PCR, Throat (01/26/2025 11:07 AM CDT) Strep Group A, PCR, POCT Negative Negative 01/26/2025 11:11 AM CDT [facility] Swab (Throat) 01/26/2025 11: 07 AM CDT 01/26/2025 11:09 AM CDT us Daysi Linder APRN, C.N.P., M.S.N. LAB MICROBIOLOGY - GENERAL ORDERABLES Final Result [facility] [address] [place] [address], [facility] NPRG [facility] [address] [place] [address] from Last 3 Months Insurance [employer] Care Teams Wild Life Photographer Relationship Specialty Start Date End Date Elsewhere, Pcp PCP - General Internal Medicine 01/26/25
--- OUTSIDE RECORDS SUMMARY | 2025-03-10 02:29 | XMS_ITS | Encounter Summary ---
Author Organization [facility] Address [address] [place] [address] Care Team Providers Care Net Web Developer Name Role Phone Elsewhere, Pcp Primary Care Provider Unavailabl e Reason for Visit * Reason Comments Cough Pt presents with kathie oing cough x4 days. Encounter Details Date Type Department Care Team (Late st Contact Info) Description 01/26/2025 10:10 AM CDT - 01/26/2025 11:36 AM CDT Emergency [facility] [address] [place] [address] Daysi Linder, ANNIE, C.N.P., M.S.N. 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 * Viral Respiratory Infection [id number] (Azerbaijani) documented in this encounter Medications at Time of Discharge acetaminophen (TYLENOL) 500 mg tablet Take 1,000 mg by mouth every 6 (six) hours as needed for pain. benzonatate (Tessalon) 200 mg capsule Take 1 capsule (200 mg total) by mouth 3 (three) times a day as needed for cough for up to 7 days. 21 capsule 01/26/2025 02/02/2025 documented as of this encounter Progress Notes * Daysi Linder, ANNIE, C.N.P., M.S.N. - 01/26/2025 11:16 AM CDT SUBJECTIVE CHIEF COMPLAINT/REASON FOR VISIT Cough (Pt presents with ongoing cough x4 days. ) HISTORY OF PRESENT ILLNESS Keyshawn Mckeon is a 34 y.o. male who presents for 4 day history of cough and sore throat. He states when he has a coughing spell he gets a headache and a little lightheadedness. He has no history of asthma or COPD. He does vape nicotine. 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 No known exposure to strep, influenza or COVID. He denies any chest pain or shortness for breath. No fevers at home. REVIEW OF SYSTEMS Review of Systems was negative except for that mentioned in the History of Present Illness. The following portions of the chart were reviewed and updated: ???Allergies, current medications, family history, medical history, social history, and surgical history.?? OBJECTIVE VITAL SIGNS BP 139/82 (BP Location: Right arm, Patient Position: Sitting) Pulse 83 Temp 36.6 ??C (Temporal) Resp 18 Wt 103 kg SpO2 97% BMI 31.70 kg/m?? PHYSICAL EXAMINATION General: Patient is in no distress. Appropriately dressed and normal hygiene. ENT: Bilaterally sclera have no erythema or discharge. Ears: Canals have no erythema, swelling or discharge. Tympanic membranes intact and translucent with no erythema or effusion. Nasal passages have clear discharge. No significant swelling. Sinuses non tender on palpation. Oral cavity is adequately hydrated. Tonsils mild erythema no swelling. Pharynx has mild to moderate erythema. Airway patent. Neck: No cervical lymphadenopathy. Heart: Normal rate and rhythm. No murmur. Lungs: Dry nonproductive cough clear to auscultation bilaterally with good air exchange. No wheezing, rales or rhonchi. No accessory muscles of respiration noted. Musculoskeletal: Grossly intact. No deformities. No neurovascular compromise. Skin: Good turgor. No rashes noted on exposed skin during exam. No cyanosis. Neurologic/Psychiatric: Alert, responds appropriately. No weakness or abnormality of gait. DIAGNOSTICS LABS: Recent Results (from the past 24 hours) Group A Streptococcus PCR, Throat Collection Time: 01/26/25 11:07 AM Specimen: Throat; Swab Result Value Strep Group A, PCR, POCT Negative ECG: IMAGING: No results found. ASSESSMENT / PLAN #1 Infection Upper Respiratory #2 Pharyngitis Acute - Group A Streptococcus PCR, Throat; Standing - Group A Streptococcus PCR, Throat Other orders - benzonatate (Tessalon) 200 mg capsule; Take 1 capsule (200 mg total) by mouth 3 (three) times a day as needed for cough for up to 7 days., Starting 01/26/2025, Until 02/02/2025 at 2359, Normal Strep test is negative. Discussed with patient that his symptoms and exam indicated viral infection. RECOMMENDATIONS: Tessalon Perles as needed for cough. Discussed expected course of illness, [id number] symptomatic treatment of respiratory symptoms, and warning signs symptoms that would require re- evaluation or emergency evaluation. Patient verbalized understanding and acceptance of this plan has no further questions at this time. Daysi Linder APRN, C.N.P., M.S.N. Daysi Linder APRN, C.N.P., M.S.N. 01/26/25 1131 documented in this encounter Plan of Treatment Not on file documented as of this encounter Procedures Procedure Name Priority Date/Time Associated Diagnosis Comments GROUP A STREP PCR, THROAT STAT 01/26/2025 11:07 AM CDT Pharyngitis Acute documented in this encounter Results * Group A Streptococcus PCR, Throat (01/26/2025 11:07 AM CDT) Strep Group A, PCR, POCT Negative Negative 01/26/2025 11:11 AM CDT [facility] Swab (Throat) 01/26/2025 11: 07 AM CDT 01/26/2025 11:09 AM CDT Daysi Linder APRN, C.N.P., M.S.N. LAB MICROBIOLOGY - GENERAL ORDERABLES Final Result [facility] [address] [place] [address], [facility] NPRG [facility] [address] [place] [address] documented in this encounter Visit Diagnoses Diagnosis Infection Upper Respiratory- Primary Pharyngitis Acute documented in this encounter Care Teams Net Web Developer Relationship Specialty Start Date End Date Elsewhere, Pcp PCP - General Internal Medicine 01/26/25 documented as of this encounter
--- OUTSIDE RECORDS SUMMARY | 2025-03-10 02:29 | XMS_ITS | Continuity of Care Document ---
Author Name [facility] Organization [facility] Care Team Providers Care Water Quality Assistant Name Role Phone [facility] Unavailable Unavailable Problems Combined list of problems from Department of Defense and Veterans Affairs facilities. It does not include entries that were removed or entered in error. Problem Status Onset Date Problem Type Date of Resolution Comments Source Back pain Active Condition [facility] Bilateral knee pain Active [facility] Gastroesophageal reflux disease Active Condition [facility] Insomnia Active Condition [facility] Obstructive sleep apnea of adult Active Condition [facility] Tinnitus Active Condition [facility] ASSESSMENT OF PATIENT CONDITION WORK STATUS Inactive Condition [facility] visit for: services physical Active Condition [facility] visit for: administrative purpose Inactive Condition [facility] WRIST SPRAIN - RIGHT Inactive Condition [facility] OVERWEIGHT Inactive Condition [facility] NICOTINE DEPENDENCE Inactive Condition D oD DEPRESSION Inactive Condition [facility] SINUSITIS ACUTE Inactive Condition [facility] RHINITIS Inactive Condition [facility] Patient Education Inactive Condition [facility] abdominal pain feels crampy / colicky Inactive Condition [facility] ESOPHAGEAL REFLUX Inactive Condition [facility] Patient Education - Medication Inactive Condition [facility] visit for: issue medical certificate fitness Inactive Condition [facility] visit for: services physical pre-deployment Inactive Condition [facility] visit for: laboratory Inactive Condition [facility] insomnia Inactive Condition [facility] CONJUNCTIVITIS ACUTE BOTH EYES Inactive Condition [facility] COMMON COLD Inactive Condition [facility] visit for: refer patient without exam or treatment Inactive Condition [facility] ASSESSMENT OF PATIENT CONDITION WORK-RELATED Active Condition [facility] UPPER RESPIRATORY INFECTION Inactive Condition [facility] Allergies, Adverse Reactions, Alerts Combined list of allergies from Department of Defense and Veterans Affairs facilities. It does not include entries that were removed or entered in error. Substance Category Reaction Severity Reaction type Status Date Reported Comments Source No Known Allergies Drug allergy (disorder) active 08/25/2009 [facility] [place] [address] Immunizations Combined list of available immunizations from the Department of Defense and Veterans Affairs facilities. Immunization Series Date Given Administered By Site Reaction Lot Number CVX Code Drug Daycare Teacher Status Comments Source COVID-19 (FRANCISCO), VECTOR-NR, RS-AD26, PF, 0.5 ML 1 2020 212 complet ed [facility] INFLUENZA, SEASONAL, INJECTABLE, PRESERVATIVE FREE 2016 140 complet ed [facility] Influenza, seasonal, injectable, preservative free 5 2012 [id number] Sanofi Pasteur (PMC) complet ed Influenza , seasonal, injectabl e, preservat lis free DoD measles virus vaccine 0 2012 05 () Not Given measles virus vaccine DoD rubella virus vaccine 0 2012 06 () Not Given rubella virus vaccine [facility] influenza virus vaccine, live, attenuated, for intranasal use 1 2011 [id number] [employer] (MED) complet influenza virus vaccine, live, attenuate d, for intranasa l use DoD anthrax vaccine 3 2010 [id number] [employer] Oscar (MIP) complet ed anthrax vaccine DoD Influenza, seasonal, injectable 0 2010 [id number] 141 [email or web address], [employer]. (CSL) complet ed Influenza , seasonal, injectabl e DoD anthrax vaccine 2 2010 [id number] [employer] Oscar (MIP) complet ed anthrax vaccine DoD anthrax vaccine 1 2010 [id number] [employer] Oscar (MIP) complet ed anthrax vaccine DoD vaccinia (smallpox) vaccine 1 2010 [id number] 75 [facility] ([facility]) complet ed vaccinia (smallpox ) vaccine DoD typhoid Vi capsular polysaccharid e vaccine 1 2010 [id number] 101 Sanofi Pasteur (PMC) complet ed typhoid Vi capsular polysacch aride vaccine DoD influenza virus vaccine, live, attenuated, for intranasal use 1 2009 [id number] 111 [employer] (MED) complet ed influenza virus vaccine, live, attenuate d, for intranasa l use DoD hepatitis A vaccine, pediatric dosage, unspecified formulation 2 2009 [id number] 31 [employer] (SKB) complet ed hepatitis A vaccine, pediatric dosage, unspecifi ed formulati on DoD Novel influenza-H1N 1-09, injectable 1 2009 [id number] 127 Novartis Hapzing Karla. (NOV) complet ed Novel influenza -C8Q5-90, injectabl e DoD measles, mumps and rubella virus vaccine 1 2008 03 () Not Given measles, mumps and rubella virus vaccine DoD varicella virus vaccine 1 2008 21 () Not Given varicella virus vaccine DoD hepatitis A vaccine, pediatric dosage, unspecified formulation 1 2008 [id number] 31 [employer] (SKB) complet ed hepatitis A vaccine, pediatric dosage, unspecifi ed formulati on DoD hepatitis B vaccine, unspecified formulation 1 2008 45 () Not Given hepatitis B vaccine, unspecifi ed formulati on DoD poliovirus vaccine, inactivated 1 2008 [id number] 10 Sanofi Pasteur (PMC) complet ed polioviru s vaccine, inactivat ed DoD influenza virus vaccine, split virus (incl. purified surface antigen)-reti red CODE 1 2008 [id number] 1A 15 CS [employer], [employer]. (CSL) complet ed influenza virus vaccine, split virus (incl. purified surface antigen)- retired CODE DoD meningococcal polysaccharid e (groups A, C, Y and W-135) diphtheria toxoid conjugate vaccine (MCV4P) 1 2008 [id number] Sanofi Pasteur (PMC) complet ed meningoco ccal polysacch aride (groups A, C, Y and W-135) diphtheri a toxoid conjugate vaccine (MCV4P) DoD tetanus toxoid, reduced diphtheria toxoid, and acellular pertu is vaccine, adsorbed 1 2008 [id number] [id number] 115 [employer] (SKB) complet ed tetanus toxoid, reduced diphtheri a toxoid, and acellular pertussis vaccine, adsorbed DoD Encounters Combined list of: 1) Encounters from Department of Veterans Affairs facilities going backup to the last 18 months, not all VA inpatient encounters are included; 2) Encounters from the Department of Defense facilities going backup to 280 months. Location Location Details Encounter Type Encounter Number Reason For Visit Attending Provider ADM Date DC Date Status Disposition [place] [address]([facility]) OUTPATIENT [id number] 1100- COLD X/ DIZZINE SS (320/74 6) CINDY MCKAY 08/25 [facility]ased w[facility]itations [facility] [place] [place] [address] [place] [employer]([facility]) OUTPATIENT [id number] Dental Pha/Web ALLISON MARILYN HAMMONDS 01/05 Released w/o Limitations [employer]([facility]) [employer]([facility]) TELE CONSULT [id number] Inproce ssing sheet STACIE LEBLANC 01/18 [employer] [employer]([facility]) OUTPATIENT [id number] headach e/cough /sinus pain CARA HUMPHREY 01/20 Sick at Home/Quarter s [employer] [employer]([facility]) OUTPATIENT [id number] Right eye is red,[facility] over yesterd RAKESH Jennings 09/07 Released w/o Limitations [employer] [employer]([facility]) OUTPATIENT [id number] Can't fall asleep, can't stay asleep, x month GEENA SIMPSON 12/06 Released w/o Limitations [employer] [employer]([facility]) OUTPATIENT [id number] annual pha HOLLY SOL 01/17 Released w/o Limitations [employer]([facility]) [employer]([facility]) OUTPATIENT [id number] pt c/o sore throat STACIE LEBLANC 03/11 Released w/o Limitations [employer] [employer]([facility]) OUTPATIENT [id number] #1 SHELIA WONG 05/04 Released w/o Limitations [employer] OUTPATIENT [id number] 08/09 [facility]ased w/o Limitations [facility] OUTPATIENT [id number] 08/10 Sick at Home/Quarter s [facility] OUTPATIENT [id number] 08/27 Released w/o Limitations [facility] OUTPATIENT [id number] 10/14 Released w/o Limitations [facility] OUTPATIENT [id number] 11/02 Released w/o Limitations [facility] OUTPATIENT [id number] 11/03 Released w/o Limitations [facility] OUTPATIENT [id number] 11/06 Released w/o Limitations [facility] [employer]([facility]) OUTPATIENT [id number] decreas e in interes ts, tired all the time x 1 wk, no hi/si GEENA SIMPSON A 02/12 Released w/o Limitations [employer]([facility]) [employer]([facility]) OUTPATIENT [id number] ROSA Nesbitt 02/14 Released with Work/Duty Limitations [employer]( [facility]) [employer]([facility]) OUTPATIENT [id number] Pain in right wrist GEENA SIMPSON 05/07 Released w/o Limitations [employer]([facility]) [employer]([facility]) OUTPATIENT [id number] GEENA Dumont 07/24 Released w/o Limitations [employer]([facility]) [employer]([facility]) TELE CONSULT [id number] Notes Entered by: VANESSA BUITRAGO 23 Aug 2012 1455 ------- ------- ------- ------- -- Request ing to be seen ELDER TRINIDAD 08/23 Referred for Appointment [employer]([facility]) [employer]([facility]) OUTPATIENT [id number] Color Vision for Tao austen YEN SUMANTH L 10/05 Released w/o Limitations [employer]([facility]) [employer]([facility]) OUTPATIENT [id number] Notes Entered by: CECIL RAMAN 08 Jan 2013 1509 ------- ------- ------- ------- -- deploym ent status LORENZO PAULA 01/08 Released w/o Limitations [employer]([facility]) [employer]([facility]) OUTPATIENT [id number] Separat ion kostasveronica OCTAVIO Mitchell 04/16 Released w/o Limitations [employer]([facility]) [employer]([facility]) OUTPATIENT [id number] annual pha ROBLES CHANEL A 05/01 Released w/o Limitations [employer]([facility]) [place] OUTPATIENT [id number] Notes Entered by: BRENNAN AGARWAL 23 Jun 2014 0835 ------- ------- ------- ------- -- ''blist ers in foot'' EMANI HEADLEY 06/22 Released w/o Limitations [facility] [place] [facility] Procedures Combined list of: 1) Procedures from Department of Veterans Affairs facilities going back up to thelast 18 months, not all VA non-surgical procedures are included; 2) All procedures from the Department of Defense facilities. Procedure Procedure Type Code Date Perfomer Comments [facility] Visual Function Screening Visual Function Screening 90406 2 LATA SEGURA [facility] Psychiatric Evaluation Review of Records and Reports Psychiatric Evaluation Review of Records and Reports 73521 2 SAKSHI RIDER [facility] Wrist hand orthosis, wrist extension control cock-up, non molded, prefabricated, [id number] 2 GEENA SIMPSON [facility] Psychiatric Evaluation Review of Records and Reports Psychiatric Evaluation Review of Records and Reports 09134 1 RAO PURCELL [facility] Psychometric Neuropsych Testing Battery Admin By Computer Psychometric Neuropsych Testing Battery Admin By Computer 24997 1 SHARMIN RANGEL [facility] VIS FUNCT SCREEN,AUTOMAT/SEMI-AUT OMAT BILAT QUANT DETERM VISUAL ACUITY,OCULAR ALIGN,COLOR VISION,PSEUDOISOCHROMAT PLATES,& FIELD VIS (MAY INC ALL/SOME SCRN DETERM FOR CONTRAST SENSITIV,VIS UND GLARE) 2 [facility] PSYCHIATRIC EVALUATION OF HOSPITAL RECORDS, OTHER PSYCHIATRIC REPORTS, PSYCHOMETRIC AND/OR PROJECTIVE TESTS, AND OTHER ACCUMULATED DATA FOR MEDICALDIAGNOSTIC PURPOSES 2 [facility] WRIST HAND ORTHOSIS, WRIST EXTENSION CONTROL COCK-UP, NON MOLDED, PREFABRICATED, [id number] 2 [facility] PSYCHIATRIC EVALUATION OF HOSPITAL RECORDS, OTHER PSYCHIATRIC REPORTS, PSYCHOMETRIC AND/OR PROJECTIVE TESTS, AND OTHER ACCUMULATED DATA FOR MEDICALDIAGNOSTIC PURPOSES 1 [facility] NEUROPSYCHOLOGICAL TESTING (EG, [place] CARD SORTING TEST), ADMINISTERED BY A COMPUTER, WITH QUALIFIED HEALTH RETAIL GREETER INTERPRETATION AND REPORT 1 [facility] Social History Combined list of available smoking, tobacco, and other social history from Department of Defense and Veterans Affairs facilities. Social History Type Response Date Comment Sourc e Tobacco smoking status NHIS VA-TOBACCO USE WI 30 MIN OF WAKEUP 01/21/2019 [facility] History of tobacco use VA-TOBACCO USER E VERY DAY 01/21/2019 [facility] History of tobacco use FORMER TOBACCO USE <1Y 09/19/2017 [facility] This section is an empty social history section. DoD
[2025-03-10 02:34] VITALS: BP 144/92; PULSE 94; RESP 20; TEMP 36.8; O2SAT 94; BMI 32.5
--- OUTSIDE RECORDS SUMMARY | 2025-03-10 02:53 | XMS_ITS | Clinical Summary ---
Author Organization [facility] [facility] Address [address] [place] [address] Care Team Providers Care Paraprofessional Aide Name Role Phone Pcp, No Primary Care [...] [place] [id number] [place]STA [id number] [phone] (Work) [address] [place] [address] Care Teams Paraprofessional Aide Relationship Specialty Start Date End Date Pcp, No . PCP - General 03/31/17
--- OUTSIDE RECORDS SUMMARY | 2025-03-10 02:53 | XMS_ITS | Encounter Summary ---
Author Organization [facility] Address [address] [place] [address] Care Team Providers Care Rehabilitation Aide/Scheduler Name Role Phone Elsewhere, Pcp Primary Care Provider Unavailabl e Reason for Visit * Reason Comments Cough Pt presents with kathie oing cough x4 days. Encounter Details Date Type Department Care Team (Late st Contact Info) Description 01/26/2025 10:10 AM CDT - 01/26/2025 11:36 AM CDT Emergency [facility] [address] [place] [address] Daysi Linder, ANNIE, C.N.P., M.S.N. 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 * Viral Respiratory Infection Nzji-Pf-Yqwr (Dominican) documented in this encounter Medications at Time [...] does vape nicotine. 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 No known exposure to strep, influenza or [...] for cough. Discussed expected course of illness, [id number] symptomatic treatment of respiratory symptoms, and warning [...] LAB MICROBIOLOGY - GENERAL ORDERABLES Final Result [facility] [address] [place] [address], [facility] NPRG [facility] [address] [place] [address] documented in this encounter Visit Diagnoses Diagnosis Infection Upper Respiratory- Primary Pharyngitis Acute documented in this encounter Care Teams Rehabilitation Aide/Scheduler Relationship Specialty Start Date End Date Elsewhere, Pcp PCP - General Internal Medicine 01/26/25 documented as of this encounter
--- OUTSIDE RECORDS SUMMARY | 2025-03-10 02:53 | XMS_ITS | Clinical Summary ---
Author Organization [facility] Address [address] [place] [address] Care Team Providers Care Clean Room Assembler Name Role Phone Elsewhere, Pcp Primary Care Provider Unavailabl e Source Comments Patient records contain information from all sites at [facility]. For routine questions regarding patient records, call [phone] during business hours, M-F 8:00 AM - 5:00 PM Central Time. Record requests for emergency care only can be directed to [phone] at any time.[facility] Allergies No known active allergies Medications acetaminophen [...] CDT - 01/26/2025 11:36 AM CDT Emergency [facility] [address] [place] [address] Daysi Linder APRN, C.N.P., M.S.N. 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
--- OUTSIDE RECORDS SUMMARY | 2025-03-10 02:53 | XMS_ITS | Clinical Summary ---
Author Organization [facility] Address [address] [place] [address] Care Team Providers Care Outside Sales Account Executive Name Role Phone Watson Mo PA-C Primary Care Provider + [phone] Source Comments You are receiving this document as you are listed as the primary care provider,follow-up provider, or the patient has been referred to you for consultation.This is in compliance with the Medicare and[facility] Hospitalca[facility] EHR Incentive Program,which states Providers who transition their patient to another setting of careor provider of care or refers their patient to another provider of care shouldprovide summary care record for each transition of care or referral. [facility] Allergies No known active allergies Medications No [...] any time in the past 12 m [facility], were you homeless or [...] Negative (Non Reactive) 06/26/2024 8:16 PM CDT [facility] Comment:HIV-1 p24 Antigen an d HIV-1/HIV-2 Antibody not detected Blood Venipuncture / Unknown 06/26/2024 3:45 PM CDT 06/26/2024 3:45 PM CDT us Watson Mo PA-C LAB_1 Final Result [facility] [address] * Hepatitis C Antibody, with Reflex (06/26/2024 3:45 PM CDT) Hepatitis C Antibody Negative (Non Reactive) Negative (Non Reactive) 06/26/2024 8:16 PM CDT [facility] Comment:Antibodies to HCV no t detected. Does not exclude the possiblity of exposure to HCV. Blood Venipuncture / Unknown 06/26/2024 3:45 PM CDT 06/26/2024 3:45 PM CDT us Watson Mo PA-C LAB_1 Final Result [facility] [address] [place] [address], [facility] from Last 3 Months or Most Recently Relevant to Health Maintenance Insurance SELF INSURED SELF INSURED Care Teams Outside Sales Account Executive Relationship Specialty Start Date End Date Watson Mo PA-C [address] [place] [address] PCP - General Physician Head Of Cytogenetics 06/26/24
--- OUTSIDE RECORDS SUMMARY | 2025-03-10 02:53 | XMS_ITS | Continuity of Care Document ---
Author Name [facility] Organization [facility] Care Team Providers Care Pharmaceutical Worker Name Role Phone [facility] Unavailable Unavailable Problems Combined list of problems from Department of Defense and Veterans Affairs facilities. It does not include entries that were removed or entered in error. Problem Status Onset Date Problem Type Date of Resolution Comments Source Back pain Active Condition [facility] Bilateral knee pain Active [facility] Gastroesophageal reflux disease Active Condition [facility] Insomnia Active Condition [facility] Obstructive sleep apnea of adult Active Condition [facility] Tinnitus Active Condition [facility] ASSESSMENT OF PATIENT CONDITION WORK STATUS Inactive Condition [facility] visit for: services physical Active Condition [facility] visit for: administrative purpose Inactive Condition [facility] WRIST SPRAIN - RIGHT Inactive Condition [facility] OVERWEIGHT Inactive Condition [facility] NICOTINE DEPENDENCE Inactive Condition D oD DEPRESSION Inactive Condition [facility] SINUSITIS ACUTE Inactive Condition [facility] RHINITIS Inactive Condition [facility] Patient Education Inactive Condition [facility] abdominal pain feels crampy / colicky Inactive Condition [facility] ESOPHAGEAL REFLUX Inactive Condition [facility] Patient Education - Medication Inactive Condition [facility] visit for: issue medical certificate fitness Inactive Condition [facility] visit for: services physical pre-deployment Inactive Condition [facility] visit for: laboratory Inactive Condition [facility] insomnia Inactive Condition [facility] CONJUNCTIVITIS ACUTE BOTH EYES Inactive Condition [facility] COMMON COLD Inactive Condition [facility] visit for: refer patient without exam or treatment Inactive Condition [facility] ASSESSMENT OF PATIENT CONDITION WORK-RELATED Active Condition [facility] UPPER RESPIRATORY INFECTION Inactive Condition [facility] Allergies, Adverse Reactions, Alerts Combined list of allergies from Department of Defense and Veterans Affairs facilities. It does not include entries that were removed or entered in error. Substance Category Reaction Severity Reaction type Status Date Reported Comments Source No Known Allergies Drug allergy (disorder) active 08/25/2009 [facility] [place] [address] Immunizations Combined list of available immunizations from the Department of Defense and Veterans Affairs facilities. Immunization Series Date Given Administered By Site Reaction Lot Number CVX Code Drug Practice Or Student Teacher Status Comments Source COVID-19 (FRANCISCO), VECTOR-NR, RS-AD26, PF, 0.5 ML 1 2020 212 complet ed [employer] INFLUENZA, SEASONAL, INJECTABLE, PRESERVATIVE FREE 2016 140 complet ed [employer] Influenza, seasonal, injectable, preservative free 5 2012 [id number] Sanofi Pasteur (PMC) complet ed Influenza , seasonal, injectabl e, preservat lis free DoD measles virus vaccine 0 2012 05 () Not Given measles virus vaccine DoD rubella virus vaccine 0 2012 06 () Not Given rubella virus vaccine [facility] influenza virus vaccine, live, attenuated, for intranasal use 1 2011 [id number] [employer] (MED) complet influenza virus vaccine, live, attenuate d, for intranasa l use DoD anthrax vaccine 3 2010 [id number] [employer] (MIP) complet ed anthrax vaccine DoD Influenza, seasonal, injectable 0 2010 [id number] 141 [employer] W[employer]. (CSL) complet ed Influenza , seasonal, injectabl e DoD anthrax vaccine 2 2010 [id number] 24 [employer] (MIP) complet ed anthrax vaccine DoD anthrax vaccine 1 2010 [id number] 24 [employer] (MIP) complet ed anthrax vaccine DoD vaccinia (smallpox) vaccine 1 2010 [id number] 75 [facility] complet ed vaccinia (smallpox ) vaccine DoD typhoid Vi capsular polysaccharid e vaccine 1 2010 [id number] 101 Sanofi Pasteur (PMC) complet ed typhoid Vi capsular polysacch aride vaccine DoD influenza virus vaccine, live, attenuated, for intranasal use 1 2009 [id number] 111 [place] [employer] (MED) complet ed influenza virus vaccine, live, attenuate d, for intranasa l use DoD hepatitis A vaccine, pediatric dosage, unspecified formulation 2 2009 [id number] 31 [employer] (SKB) complet ed hepatitis A vaccine, pediatric dosage, unspecifi ed formulati on DoD Novel influenza-H1N 1-09, injectable 1 2009 [id number] 127 Novartis Zoyi Karla. (NOV) complet ed Novel influenza -[id number], injectabl e DoD measles, mumps and rubella [...] purified surface antigen)-reti red CODE 1 2008 [id number] 1A 15 [employer] Wanova. (CSL) complet ed influenza virus vaccine, split virus (incl. purified surface antigen)- retired CODE DoD meningococcal polysaccharid e (groups A, C, Y and W-135) diphtheria toxoid conjugate vaccine (MCV4P) 1 2008 [id number] 114 Sanofi Pasteur (PMC) complet ed meningoco ccal polysacch aride (groups A, C, Y and W-135) diphtheri a toxoid conjugate vaccine (MCV4P) DoD tetanus toxoid, reduced diphtheria toxoid, and acellular pertu is vaccine, adsorbed 1 2008 [id number] 115 [employer] (SKB) complet ed tetanus [...] ADM Date DC Date Status Disposition [place] [facility] [place] [address] [id number] 1100- COLD X/ DIZZINE SS (320/74 6) CINDY MCKAY 08/25 Released w/o Limitations [facility] [place] [address] [place] [employer]([facility]) OUTPATIENT [id number] Dental Pha/Web ALLISON MARILYN HAMMONDS 01/05 Released w/o Limitations [employer]([facility]) [employer]([facility]) TELE CONSULT [id number] Inproce ssing sheet STACIE LEBLANC 01/18 [employer] [employer]([facility]) OUTPATIENT [id number] headach e/cough /sinus pain CARA HUMPHREY 01/20 Sick at Home/Quarter s [employer] [employer]([facility]) OUTPATIENT [id number] Right eye is red,[facility] yesterd RAKESH Jennings 09/07 Released w/o Limitations [employer] [employer]([facility]) OUTPATIENT [id number] Can't fall asleep, can't stay asleep, x month GEENA SIMPSON 12/06 Released w/o Limitations [employer] [employer]([facility]) OUTPATIENT [id number] annual pha HOLLY SOL 01/17 Released w/o Limitations [employer]([facility]) [employer]([facility]) OUTPATIENT [id number] pt c/o sore throat STACIE LEBLANC 03/11 Released w/o Limitations [employer] [employer]([facility]) OUTPATIENT [id number] #1 SHELIA WONG 05/04 Released w/o Limitations [employer] OUTPATIENT [id number] 08/09 Released w/o Limitations [facility] OUTPATIENT [id number] 08/10 Sick at Home/Quarter s [facility] OUTPATIENT [id number] 08/27 Released w/o Limitations [facility] OUTPATIENT [id number] 10/14 Released w/o Limitations [facility] OUTPATIENT [id number] 11/02 Released w/o Limitations [facility] OUTPATIENT [id number] 11/03 Released w/o Limitations [facility] OUTPATIENT [id number] 11/06 Released w/o Limitations [facility] [employer]([facility]) OUTPATIENT [id number] decreas e in interes ts, tired all the time x 1 wk, no hi/si GEENA SIMPSON A 02/12 Released w/o Limitations [employer]([facility]) [employer]([facility]) OUTPATIENT [id number] ROSA Nesbitt 02/14 Released with Work/Duty Limitations [employer]( [facility]) [employer]([facility]) OUTPATIENT [id number] Pain in right wrist GEENA SIMPSON 05/07 Released w/o Limitations [employer]([facility]) [employer]([facility]) OUTPATIENT [id number] GEENA Dumont 07/24 Released w/o Limitations [employer]([facility]) [employer]([facility]) TELE CONSULT [id number] Notes Entered by: VANESSA BUITRAGO 23 Aug 2012 1455 ------- ------- ------- ------- -- Request ing to be seen ELDER TRINIDAD 08/23 Referred for Appointment [employer]([facility]) [employer]([facility]) OUTPATIENT [id number] Color Vision for Tao austen YEN SUMANTH L 10/05 Released w/o Limitations [employer]([facility]) [employer]([facility]) OUTPATIENT [id number] Notes Entered by: CECIL RAMAN 08 Jan 2013 1509 ------- ------- ------- ------- -- deploym ent status LORENZO PAULA 01/08 Released w/o Limitations [employer]([facility]) [employer]([facility]) OUTPATIENT [id number] Separat ion kostasveronica OCTAVIO Mitchell 04/16 Released w/o Limitations [employer]([facility]) [employer]([facility]) OUTPATIENT [id number] annual pha ROBLES CHANEL A 05/01 Released w/o Limitations [employer]([facility]) [facility] [place] OUTPATIENT [id number] Notes Entered by: BRENNAN AGARWAL 23 Jun 2014 0835 ------- ------- ------- ------- -- ''blist ers in foot'' EMANI HEADLEY 06/22 Released w/o Limitations [place] [facility] Procedures Combined list of: 1) Procedures from Department of Veterans Affairs facilities going back up to thelast 18 months, not all VA non-surgical procedures are included; 2) All procedures from the Department of Defense facilities. Procedure Procedure Type Code Date Perfomer Comments [facility] Visual Function Screening Visual Function Screening 69725 2 LATA SEGURA [facility] Psychiatric Evaluation Review of Records and Reports Psychiatric Evaluation Review of Records and Reports 85370 2 SAKSHI RIDER [facility] Wrist hand orthosis, wrist extension control cock-up, non molded, prefabricated, [id number] 2 GEENA SIMPSON [facility] Psychiatric Evaluation Review of Records and Reports Psychiatric Evaluation Review of Records and Reports 66263 1 RAO PURCELL [facility] Psychometric Neuropsych Testing Battery Admin By Computer Psychometric Neuropsych Testing Battery Admin By Computer 14619 1 SHARMIN RANGEL [facility] VIS FUNCT SCREEN,AUTOMAT/SEMI-AUT OMAT BILAT QUANT DETERM VISUAL ACUITY,OCULAR ALIGN,COLOR VISION,PSEUDOISOCHROMAT PLATES,& FIELD VIS (MAY INC ALL/SOME SCRN DETERM FOR CONTRAST SENSITIV,VIS UND GLARE) 2 [facility] PSYCHIATRIC EVALUATION OF HOSPITAL RECORDS, OTHER PSYCHIATRIC REPORTS, PSYCHOMETRIC AND/OR PROJECTIVE TESTS, AND OTHER ACCUMULATED DATA FOR MEDICALDIAGNOSTIC PURPOSES 2 [facility] WRIST HAND ORTHOSIS, WRIST EXTENSION CONTROL COCK-UP, NON MOLDED, PREFABRICATED, [id number] 2 [facility] PSYCHIATRIC EVALUATION OF HOSPITAL RECORDS, OTHER PSYCHIATRIC REPORTS, PSYCHOMETRIC AND/OR PROJECTIVE TESTS, AND OTHER ACCUMULATED DATA FOR MEDICALDIAGNOSTIC PURPOSES 1 [facility] NEUROPSYCHOLOGICAL TESTING (EG, [place] CARD SORTING TEST), ADMINISTERED BY A COMPUTER, WITH QUALIFIED HEALTH JAVA DEVELOPER WITH SECURITY CLEARANCE INTERPRETATION AND REPORT 1 [facility] Social History Combined list of available smoking, tobacco, and other social history from Department of Defense and Veterans Affairs facilities. Social History Type Response Date Comment Sourc e Tobacco smoking status NHIS VA-TOBACCO USE WI 30 MIN OF WAKEUP 01/21/2019 [facility] History of tobacco use VA-TOBACCO USER E VERY DAY 01/21/2019 [facility] History of tobacco use FORMER TOBACCO USE <1Y 09/19/2017 [facility] This section is an empty social history section. DoD
--- NOTE | 2025-03-10 02:59 | ED.GENADULT ---
HPI - General Adult General Date Seen: 03/10/25 Chief complaint: Cough Stated complaint: cough Time Seen by Provider: 03/10/25 02:33 Source: patient Mode of arrival: ambulatory Limitations: no limitations History of Present Illness HPI narrative: Patient is a 34-year-old gentleman who presents here with a cough for 1 weeks time., feels he may have bronchitis is he has had this before in the past, he says that he finds that inhaler work straight he has no diagnosed history of asthma, he has been tried some cough drops and this also was not helpful. Does report any chest pain or any shortness of breath associated with this he has had no hemoptysis is had no really productive sputum. No past history of any cardiac or pulmonary issues, he does vape. No leg swelling, no hemoptysis, no history of pleuritic chest pain, No family history of any DVTs pulmonary embolism premature coronary disease, Works at [employer]. Related Data Allergies Allergy/AdvReac Type Severity Reaction Status Date / Time No Known Drug Allergies Allergy Verified 07/09/24 01:11 Review of Systems Status of ROS: Reports: 10 or more systems reviewed and unremarkable except as noted in History and below PFSH PFS Social History Smoking Status: Never smoker Do you use any of these nicotine containing products: Vaping Products Second hand tobacco smoke exposure: No How often do you have a drink containing alcohol: monthly or less How many standard drinks containing alcohol do you have on a typical day: 1 or 2 How often do you have six or more drinks on one occasion: Never AUDIT-C Alcohol total score: 1 Non-prescribed substance use: denies use service: No Exam Narrative: Exam Narrative: Patient is seen in room 2 he is in no apparent distress, his vital signs are listed in all normal, nontoxic, speaking to me in full sentences. Pupils equal round reactive to light there is no scleral icterus redness is TMs bilaterally are normal his oropharynx is normal there is no adenopathy anterior posterior chains, chest is good air entry bilateral with no wheezing crackles noted easy respirations no splinting, heart sounds no clicks murmurs or gallops, abdomen is soft and slightly obese there is no guarding no hepatosplenomegaly. Skin reveals no petechiae rashes. Const: Vital Signs, click to edit/add: Vital Signs - 24 hr 03/10/25 02:34 Temperature 98.2 F Pulse Rate [Right Pulse Oximeter] 94 Respiratory Rate 20 Blood Pressure [Ri ght Upper Arm] 144/92 H Pulse Oximetry 94 Oxygen Delivery Me thod Room Air Documenting provider has reviewed patient's vital signs: yes Course Vital Signs Vital signs: Initial Vital Signs Temperature 98.2 F 03/10/25 02:34 Temperature Source Temporal Artery Scan 03/10/25 02:34 Pulse Rate 94 03/10/25 02:34 Respiratory Rate 20 03/10/25 02:34 Blood Pressure 144/92 H 03/10/25 02:34 Blood Pressure Mean 109 H 03/10/25 02:34 Blood Pressure Position Sitting 03/10/25 02:34 Pulse Oximetry 94 03/10/25 02:34 Oxygen Delivery Method Room Air 03/10/25 02:34 Vital Signs Temperature 98.2 F 03/10/25 02:34 Pulse Rate 94 03/10/25 02:34 Respiratory Rate 20 03/10/25 02:34 Blood Pressure 144/92 H 03/10/25 02:34 Pulse Oximetry 94 03/10/25 02:34 Oxygen Delivery Method Room Air 03/10/25 02:34 Temperature 98.2 F 03/10/25 02:34 Pulse Rate 94 03/10/25 02:34 Respiratory Rate 20 03/10/25 02:34 Blood Pressure 144/92 H 03/10/25 02:34 Pulse Oximetry 94 03/10/25 02:34 Oxygen Delivery Method Room Air 03/10/25 02:34 Medical Decision Making MDM Narrative Medical decision making narrative: Differential diagnosis include a viral upper respiratory illness, histoplasmosis, tuberculosis, pneumonia, COPD exacerbation, emphysema, strep throat illness, bronchitis, asthma, reactive airway disease, chronic cough, medication side effects, allergic rhinitis with postnasal drip, foreign body aspiration, aspiration pneumonia, bronchiolitis, and gastroesophageal reflux disease as well as multiple other considerations. Think this most likely is bronchitis. Maybe even early pneumonia, but I would recommend that we use antibiotics and we will use the inhaler as is worked well for him in the past, we went over signs and symptoms of worsening condition he should follow-up with these occurred was very comfortable with this plan. Medical Records Medical records reviewed: Yes I reviewed the patient's medical records Discharge Plan Discharge Clinical Impression: Bronchitis Patient Disposition: Home, Self-Care Condition: Stable Instructions: How to Use a Metered-Dose Inhaler (DC), Acute Bronchitis (ED) Additional Instructions: Home, rest, use of medications as directed, if you do use a cough medicine do not use one that has guanefesin in it. It causes you to cough. Follow-up if increasing fevers chills shortness of breath or other issues. I do endorse you quitting vaping. Rx Zithromax Z-Mike, albuterol MDI via instymeds Activity Level: Light activity Discharge Diet: Regular Follow Up/Referrals: Provider,Not a Local [Primary Care Provider] - Stand Alone Forms: [employer] Info Instructions
[2025-03-10 03:21] LABS: PCR FLU A Negative PCR FLU A (Negative); PCR FLU B Negative PCR FLU B (Negative); PCR RSV Negative PCR RSV (Negative); SARS PCR* Negative SARS-CoV-2 (Negative)
== END 2025-03-10 03:01 | disposition home or self-care (01) ==
LOC: ED 02:51
PROVIDERS: Emergency Provider Family Medicine
DX: J40 Bronchitis, not specified as acute or chronic (principal)
CPT/HCPCS: 87631; 99283